=== PATIENT | male | born 1945 | race Caucasian/White ===

== ENCOUNTER 2017-11-04 08:43 | Day surgery (SDC) | payer MEDICARE, MEDICAID ==
[2017-11-04] VITALS (9 sets, daily range): BP systolic 78–139; BP diastolic 45–83; PULSE 60–107; TEMP 97.9
[~2017-11-04] VITALS: Ht 165.1 cm; Wt 70.0 kg
[2017-11-04] MEDS ORDERED: PRINIVIL10 MG PO (09:46)
[2017-11-04] MEDS ORDERED: BYSTOLIC5 MG PO (09:47)
[2017-11-04] MEDS ORDERED: ZANTAC 150MG T150 MG PO (09:48)
[2017-11-04] MEDS ORDERED: ZOCOR 40MG40 MG PO (09:48)
[2017-11-04] MEDS ORDERED: PLAVIX 75MG TAB75 MG PO (09:50)
[2017-11-04] MEDS ORDERED: ASPIRIN 81M81 MG/TA2 PO (09:50)
[2017-11-04] MEDS ORDERED: NITROSTAT0.4 MG/TAB SL (10:07)
[2017-11-04] MEDS ORDERED: VENTOLIN0.09 MG IH (10:07)
[2017-11-04 10:21] LABS: CALCIUM 9.6 mg/dL (8.4-10.2); CREATININE, serum 0.96 mg/dL (0.66-1.25); POTASSIUM 3.9 mmol/L (3.4-5.0)
[2017-11-04] MEDS ORDERED: NORCO 325 MG-51 TAB PO (12:21)
[2017-11-04] MEDS ORDERED: COLACE 100100 MG/CAP PO (12:21)
== END 2017-11-04 15:20 | disposition home or self-care (01) ==
LOC: SDCO 08:43
PROVIDERS: Nurse Anesthetist, Certified Registered
DX: K40.90 Unilateral inguinal hernia, without obstruction or gangrene, not specified as recurrent (principal); D17.6 Benign lipomatous neoplasm of spermatic cord; Z95.1 Presence of aortocoronary bypass graft; Z79.02 Long term (current) use of antithrombotics/antiplatelets; Z79.82 Long term (current) use of aspirin; I25.10 Atherosclerotic heart disease of native coronary artery without angina pectoris; Z95.820 Peripheral vascular angioplasty status with implants and grafts; F17.210 Nicotine dependence, cigarettes, uncomplicated; K21.9 Gastro-esophageal reflux disease without esophagitis; Z86.73 Personal history of transient ischemic attack (TIA), and cerebral infarction without residual deficits; N40.0 Benign prostatic hyperplasia without lower urinary tract symptoms; M19.90 Unspecified osteoarthritis, unspecified site; Z95.5 Presence of coronary angioplasty implant and graft; Z95.828 Presence of other vascular implants and grafts; R05 Cough; J45.909 Unspecified asthma, uncomplicated; I25.2 Old myocardial infarction; I10 Essential (primary) hypertension; E78.5 Hyperlipidemia, unspecified
CPT/HCPCS: C1781; J0690; J2704; J2765; J3010; J7120